=== PATIENT | male | born 1940 | race Caucasian/White ===

== ENCOUNTER 2016-09-27 10:31 | Observation (INO) | payer MEDICARE, OTHER ==
[~2016-09-27] VITALS: Ht 172.7 cm; Wt 92.8 kg
[~2016-09-27 10:31] MED LIST: AMBI12.5; CART180C4; CYCL-36 PO; FISH1000 PO; HYDR-3533 PO; LAXATIVE PO; LEVO.075; NAPHCON A EYE; PROT40TA PO; TAB-TAB PO; TOPR50TA; VYTO10TA35 PO; XANA0.5T2
[2016-09-27] MEDS ORDERED: LACTATED RINGER'S 1000 ML IV SCH (11:00)
[2016-09-27] MEDS ORDERED: NS 1000 ML IV SCH (11:00)
[2016-09-27] MEDS ORDERED: POVIDONE IODINE 5% (ANTISEPSIS KIT) 4 APPLICATIONS EACH NARE SCH (11:00)
[2016-09-27] MEDS ORDERED: SODIUM CHLORID 0.9% 500 ML IV SCH (11:00)
[2016-09-27] MEDS ORDERED: VANCOMYCIN 1000 MG/NS 250 ML IV SCH ×2 (11:00)
[2016-09-27] MEDS ORDERED: INSULIN HUMAN REGULAR 1,000 UNITS/10 ML VIAL SQ PRN (11:00)
[2016-09-27] MEDS ORDERED: ceFAZolin 2 GM PREMIX 50 ML IV SCH ×2 (11:00→22:00)
[2016-09-27] MEDS ORDERED: NO Heparin, Lovenox, Coumadin at least 12 hours prior to procedure. XX PRN (11:00)
[2016-09-27] MEDS ORDERED: CHLORHEXIDINE GLUCONATE 2 % 1 PACK (2 CLOTHS) TOP SCH (11:00)
[2016-09-27] MEDS ORDERED: METOPROLOL TARTRATE 25 MG TAB PO PRN (11:00)
[2016-09-27] MEDS ORDERED: Hold AM Insulin & AM Hypoglycemic medications in diabetic patients XX PRN (11:00)
[2016-09-27 11:02] VITALS: BP 170/99; PULSE 76; RESP 18; TEMP 97.4; O2SAT 95
[2016-09-27] MEDS ORDERED: TRAM50TA PO (11:11)
[2016-09-27] MEDS ORDERED: METO50TA11 PO (11:11)
[2016-09-27] MEDS ORDERED: ALPR0.5T3 PO (11:11)
[2016-09-27] MEDS ORDERED: WARF-23 PO (11:11)
[2016-09-27] MEDS ORDERED: FINA5TAB2 PO (11:11)
[2016-09-27] MEDS ORDERED: LISI-519 PO (11:11)
[2016-09-27] MEDS ORDERED: AMBI10TA PO (11:11)
[2016-09-27] MEDS ORDERED: CYCL5TAB PO (11:11)
[2016-09-27] MEDS ORDERED: LEVO.075 PO (11:11)
[2016-09-27] MEDS ORDERED: ATOR20TA15 PO (11:11)
[2016-09-27 11:12] LABS: AUTOMATED NEUTROPHIL # 4.5 TH/MM3 (1.8-7.7); BASOPHIL # 0.1 TH/MM3 (0-0.2); BASOPHIL % 1.4 % (0.0-2.0); EOSINOPHIL # 0.2 TH/MM3 (0-0.4); EOSINOPHIL % 2.2 % (0.0-4.0); HEMATOCRIT 50.6 % (39.0-51.0); HEMO FLAGS DIFF FINAL; LYMPH % 34.1 % (9.0-44.0); LYMPHOCYTE # 2.9 TH/MM3 (1.0-4.8); MEAN CELL VOLUME 86.3 FL (80.0-100.0); MEAN CORPUSCULAR HEMOGLOBIN 28.5 PG (27.0-34.0); MEAN CORPUSCULAR HGB CONC 33.1 % (32.0-36.0); NEUT % 53.3 % (16.0-70.0); PLATELET COUNT 232 TH/MM3 (150-450); RED BLOOD COUNT 5.87 MIL/MM3 (4.50-5.90); WHITE BLOOD COUNT 8.5 TH/MM3 (4.0-11.0)
[2016-09-27 11:28] LABS: APTT (PATIENT) 27.3 SEC (24.3-30.1); INTERNATIONAL NORMALIZED RATIO 1.1 RATIO; PROTHROMBIN TIME - PATIENT 11.8 SEC (9.8-11.6)
[2016-09-27 11:35] LABS: BICARBONATE 26.4 MEQ/L (21.0-32.0); POTASSIUM 4.4 MEQ/L (3.5-5.1)
[2016-09-27] MEDS ORDERED: VANCOMYCIN 500 MG VIAL ONE (13:16)
[2016-09-27] MEDS ORDERED: LIDOCAINE HCL 2% 50 ML VIAL ONE (13:16)
[2016-09-27] MEDS ORDERED: FAMOTIDINE 20 MG/2 ML VIAL ONE (13:25)
--- NOTE | 2016-09-27 14:04 | EKG ---
Date Performed: 09/27/2016 Time Performed: 11:13:36 PTAGE: 76 years EKG: Atrial fibrillation IV conduction defect Poor R wave progression - probable normal variant Inferior ST-T changes are nonspecific Since previous tracing, no significant change noted Abnormal EC G PREVIOUS TRACING : 03/02/2016 13.45 DOCTOR: Mg Veliz Interpretating Date/Time 09/27/2016 13:59:09
[2016-09-27] MEDS ORDERED: PROPOFOL 200 MG/20 ML AMP IV ONE (14:45)
[2016-09-27] MEDS ORDERED: PHENYLEPH/NS 1000 MCG/10 ML SYR IV ONE (14:45)
--- NOTE | 2016-09-27 15:38 | RADRPT ---
EXAM DATE/TIME: 09/27/2016 15:15 [facility] COMPARISON: CHEST SINGLE AP, March 02, 2016, 9:33. INDICATIONS : Post pacemaker MEDICAL HISTORY : None. SURGICAL HISTORY : CABG. ENCOUNTER: Initial ACUITY: 1 day PAIN SCORE: 0/10 LOCATION: Bilateral chest FINDINGS: Portable AP view of the chest demonstrates a normal-sized cardiac silhouette in this patient post med renee sternotomy. Left chest wall cardiac pacing device is present with lead tips overlying the expecte d location of the right atrium and right ventricle based on the frontal view. Lungs are underinflated . No effusion, consolidation, or pneumothorax is visualized. There are stable calcified granulomas bi laterally. There is mild atelectasis at the lung bases. CONCLUSION: Expected appearance of the pacing device with lead tips overlying the right heart. No pneumothorax is visualized. Chung Schilling MD on September 27, 2016 at 15:35 Board Certified Radiologist. This report was verified electronically.
[2016-09-27 19:00] VITALS: BP 144/70; PULSE 102; PULSE 90; RESP 18; O2SAT 94
[2016-09-27] MEDS: amLODIPine BESYLATE 5 MG TAB PO SCH (19:30)
[2016-09-27] MEDS ORDERED: METOPROLOL TARTRATE 5 MG/5 ML VIAL IV PUSH PRN (19:30)
[2016-09-27] MEDS: LISINOPRIL 5 MG TAB PO SCH ×2 (19:30→21:00)
[2016-09-27 23:00] VITALS: BP 127/82; PULSE 102; PULSE 92; RESP 18; O2SAT 97
[2016-09-28 01:00] VITALS: PULSE 72
[2016-09-28 02:00] VITALS: PULSE 78
[2016-09-28 03:00] VITALS: BP 100/57; PULSE 63; RESP 16; O2SAT 93
[2016-09-28] MEDS ORDERED: VANCOMYCIN INJ 1,000 MG in SODIUM CHLOR 0.9% 250 ML INJ 250 ML IV ONE (03:00)
[2016-09-28 04:00] VITALS: PULSE 64
[2016-09-28 05:00] VITALS: PULSE 64
--- NOTE | 2016-09-28 07:21 | MP ---
cc: BRENT SWANSON M.D. DATE OF SURGERY: 09/27/2016 PROCEDURE Dual-chamber pacemaker implantation. INDICATION 1. Five-second pauses, atrial flutter. 2. Sick sinus syndrome. CONSENT A full informed consent was obtained prior to the procedure. The risks of , bleeding, myocardial infarction, perforation, aspiration and pneumothorax were reviewed in great detail. The patient fully appeared to understand and is willing to proceed. This was reiterated this morning when the pacemaker site was marked. PROCEDURAL STATEMENTS The patient was draped and prepped in the usual manner. The left infraclavicular area was carefully infiltrated with lidocaine. Using a micropuncture technique with ultrasound, two micropuncture wires were placed in the venous circulation. Over these wires two regular 0.035 guidewires were placed in the venous circulation. Over these, two introducer sheaths were placed in the venous circulation. Prior to the introducer sheaths being placed, a pacemaker pocket was fashioned using blunt, sharp and cautery dissection. Through the introducer sheaths an atrial and ventricular pacemaker wires were passed into the venous circulation. The ventricular lead was placed in the right ventricular apex and the screw tightened into the myocardium. The atrial lead was placed in the right atrial apex and tightened, and the screw was placed into the myocardium. Excellent pacing and sensing parameters were noted in both chambers. Both leads were sewn down to the pectoralis fascia. Both leads were connected to the respective chambers of the pulse generator. The set screws were both tightened but not over-tightened. The leads were checked by the [employer] rep and found to be acceptable. The pacemaker was sutured down to the pectoralis fascia using silk. The pocket was flushed with vancomycin solution on several occasions. The pocket was closed in three layers. CONCLUSIONS Successful placement of dual-chamber pacemaker. PLAN Will plan to do a chest x-ray to rule out pneumothorax. Will plan to discharge the patient tomorrow. The patient will follow-up with us in due course and follow-up with Dr. Neymar Demarco in due course. Brent Swanson MD, FRCP,[facility] /2:49 PM /7:02 AM
[2016-09-28 08:11] VITALS: BP 159/85; PULSE 76; RESP 18; TEMP 97.5; O2SAT 94
[2016-09-28] MEDS: amLODIPine BESYLATE 5 MG TAB PO SCH (08:23)
[2016-09-28] MEDS: LISINOPRIL 5 MG TAB PO SCH (08:23)
== END 2016-09-28 09:45 | disposition home or self-care (01) ==
LOC: HDOC 10:31 → HDIC 10:33 → HDOC 14:50 → HDIC 14:55 → HDOC 09-28 07:59 → HDIC 09-28 07:59
PROVIDERS: ADMIT Internal Medicine Cardiovascular Disease; ATTEND Internal Medicine Cardiovascular Disease
DX: I49.5 Sick sinus syndrome (principal); I47.2 Ventricular tachycardia; I48.92 Unspecified atrial flutter; I45.5 Other specified heart block; I25.10 Atherosclerotic heart disease of native coronary artery without angina pectoris; I10 Essential (primary) hypertension; E78.5 Hyperlipidemia, unspecified; E11.9 Type 2 diabetes mellitus without complications; I65.29 Occlusion and stenosis of unspecified carotid artery; D64.9 Anemia, unspecified; Z79.01 Long term (current) use of anticoagulants
CPT/HCPCS: 33208; 71010; 80048; 85025; 85610; 85730; 93005; 99156; 99157; C1785; C1898; G0378; J0690; J2370; J3010; J3370; J7050